=== PATIENT | male | born 1945 | race Caucasian/White ===

== ENCOUNTER 2019-03-20 07:25 | Emergency (ER) | payer MEDICARE, OTHER ==
[~2019-03-20] VITALS: Ht 175.3 cm; Wt 79.4 kg
[2019-03-20 07:35] LABS: URINE BILIRUBIN NEGATIVE (Negative); URINE BLOOD 2+ (Negative); URINE CLARITY CLEAR; URINE COLOR YELLOW; URINE GLUCOSE-RANDOM NEGATIVE (Negative); URINE KETONES NEGATIVE (Negative); URINE LEUKOCYTES-REFLEX NEGATIVE (Negative); URINE NITRITE-REFLEX NEGATIVE (Negative); URINE PROTEIN NEGATIVE (Negative); URINE SPECIFIC GRAVITY >= 1.030 (1.005-1.030); URINE UROBILINOGEN 0.2 E.U./dl (0.2-1.0)
[2019-03-20] MEDS ORDERED: LIPITOR20 MG PO (07:36)
[2019-03-20 07:44] LABS: SQUAMOUS 0-3 Few /LPF (0-3)
[2019-03-20 07:45] LABS: ABSOLUTE BASOPHILS 0.1 thou/uL (0.0-0.2); ABSOLUTE EOSINOPHILS 0.1 thou/uL (0.0-0.7); ABSOLUTE LYMPHOCYTES 1.1 thou/uL (0.8-5.3); ABSOLUTE MONOCYTES 0.5 thou/uL (0.0-1.2); ABSOLUTE NEUTROPHILS 7.1 thou/uL (1.6-8.1); EOSINOPHILS 0.9 %; HEMATOCRIT 50.9 % (42.0-52.0); LYMPHOCYTES 12.8 %; MCH 30.8 pg (26.0-34.0); MCHC 33.4 g/dL (28.0-37.0); MCV 92.2 fL (80.0-100.0); MONOCYTES 5.3 %; MPV 8.8 fl. (7.2-11.1); NUCLEATED RBCS 0 /100WBC; PLATELET COUNT* 214 thou/uL (150-400); RBC 5.52 mil/uL (4.50-6.00); RDW-CV 14.3 % (10.5-14.5); WBC 8.8 thou/uL (4.0-11.0)
[2019-03-20 07:45] LABS: BACTERIA-REFLEX 1-9 Few /HPF (None Seen); CRYSTALS None Seen /LPF (None Seen); HYALINE CASTS 0-3 Few /LPF (None Seen); MUCUS 4-6 Moderate strn/LPF (None Seen); URINE RBC 3-10 Few /HPF (0-2); URINE WBC-REFLEX 0-5 Rare /HPF (0-5)
[2019-03-20 07:55] LABS: ANION GAP 9 mmol/L (7-16); BUN 13 mg/dL (7-18); CALCIUM 8.8 mg/dL (8.5-10.1); CHLORIDE 104 mmol/L (98-107); CO2 31 mmol/L (21-32); CREATININE 1.3 mg/dL (0.6-1.3); GLUCOSE 139 mg/dL (70-99); POTASSIUM 3.4 mmol/L (3.5-5.1); SODIUM 144 mmol/L (136-145)
[2019-03-20 08:04] LABS: ALBUMIN 3.8 g/dL (3.4-5.0); ALKALINE PHOSPHATASE 99 U/L (46-116); LIPASE 294 U/L (73-393); SGOT 25 U/L (15-37); SGPT 35 U/L (30-65); TOTAL BILIRUBIN 0.8 mg/dL (<0.1-1.0); TROPONIN-I LEVEL <0.06 ng/mL (<0.06)
[2019-03-20] MEDS ORDERED: PROTONIX40 M1 PO (09:38)
[2019-03-20] MEDS ORDERED: ZOFRAN ODT4 MG SUBLING (09:38)
[2019-03-20] MEDS ORDERED: ULTRAM 50MG TAB50 MG PO (09:38)
[2019-03-20 09:54] VITALS: BP 145/64
--- NOTE | 2019-03-20 14:29 | EKG ---
[place] [address] ELECTROCARDIOGRAM REPORT Name: SUSANA SCHWARTZ Room: [facility]#: [id number] Admission: 03/20/19 Attend Phys: Discharge: 03/20/19 Date of : 43 Report #: [id number] THIS REPORT FOR: //name// [facility] ED Test Date: 2019-03-20 Test Time: 07:40:20 Pat Name: SUSANA SCHWARTZ Department: Room: Gender: Supervisor Machine Workers: Pete SUGGS : 1945 Requested By: Jared Brandon Order Number: [id number] MD: Josesito Naidu Measurements Intervals [place] Rate: 48 P: 39 NM: 174 QRS: -11 QRSD: 107 T: 24 QT: 477 QTc: 427 Interpretive Statements Sinus bradycardia Baseline wander in lead(s) V2 No previous ECG available for comparison Electronically Signed On 03-20-2019 14:29:38 CDT by Josesito Naidu [email or web address] <ELECTRONICALLY SIGNED> By: Josesito Naidu MD, [facility] 03/20/19 1429 0740 Josesito Naidu MD, [facility] /EPI
== END 2019-03-20 09:54 | disposition home or self-care (01) ==
LOC: M.ERS 07:25
PROVIDERS: Family Medicine
DX: R10.30 Lower abdominal pain, unspecified (principal); R11.2 Nausea with vomiting, unspecified

== ENCOUNTER 2019-05-24 17:21 | Emergency (ER) | payer OTHER ==
[~2019-05-24] VITALS: Ht 175.3 cm; Wt 74.8 kg
[~2019-05-24 17:21] MED LIST: LIPITOR20 MG PO; PROTONIX40 M1 PO; ULTRAM 50MG TAB50 MG PO; ZOFRAN ODT4 MG SUBLING
[2019-05-24 17:56] LABS: HEMATOCRIT 51.2 % (42.0-52.0); MCH 30.5 pg (26.0-34.0); MCHC 33.2 g/dL (28.0-37.0); MCV 91.9 fL (80.0-100.0); MPV 9.2 fl. (7.2-11.1); NUCLEATED RBCS 0 /100WBC; PLATELET COUNT* 232 thou/uL (150-400); RBC 5.57 mil/uL (4.50-6.00); RDW-CV 13.7 % (10.5-14.5); WBC 13.5 thou/uL (4.0-11.0)
[2019-05-24 17:57] LABS: URINE BILIRUBIN NEGATIVE (Negative); URINE BLOOD 3+ (Negative); URINE CLARITY CLEAR; URINE COLOR YELLOW; URINE GLUCOSE-RANDOM NEGATIVE (Negative); URINE KETONES 1+ (Negative); URINE LEUKOCYTES-REFLEX NEGATIVE (Negative); URINE NITRITE-REFLEX NEGATIVE (Negative); URINE PROTEIN 2+ (Negative); URINE SPECIFIC GRAVITY >= 1.030 (1.005-1.030); URINE UROBILINOGEN 0.2 E.U./dl (0.2-1.0)
[2019-05-24 18:04] LABS: HYALINE CASTS 0-3 Few /LPF (None Seen); MUCUS >6 Heavy strn/LPF (None Seen); URINE RBC >20 Many /HPF (0-2)
[2019-05-24 18:05] LABS: ANION GAP 13 mmol/L (7-16); BACTERIA-REFLEX 1-9 Few /HPF (None Seen); BUN 17 mg/dL (7-18); CALCIUM 9.5 mg/dL (8.5-10.1); CHLORIDE 104 mmol/L (98-107); CO2 26 mmol/L (21-32); CREATININE 1.3 mg/dL (0.6-1.3); CRYSTALS None Seen /LPF (None Seen); GLUCOSE 153 mg/dL (70-99); POTASSIUM 3.7 mmol/L (3.5-5.1); SODIUM 143 mmol/L (136-145); URINE WBC-REFLEX 0-5 Rare /HPF (0-5)
[2019-05-24 18:06] LABS: SQUAMOUS 0-3 Few /LPF (0-3)
[2019-05-24 18:14] LABS: ALBUMIN 4.1 g/dL (3.4-5.0); ALKALINE PHOSPHATASE 107 U/L (46-116); SGOT 17 U/L (15-37); SGPT 24 U/L (30-65); TOTAL PROTEIN 7.7 g/dL (6.4-8.2); TROPONIN-I LEVEL <0.06 ng/mL (<0.06)
[2019-05-24 18:23] LABS: ABSOLUTE LYMPHOCYTES 1.2 thou/uL (0.8-5.3); ABSOLUTE MONOCYTES 0.5 thou/uL (0.0-1.2); ABSOLUTE NEUTROPHILS 11.7 thou/uL (1.6-8.1); PLATELET ESTIMATE ADEQUATE
[2019-05-24] MEDS ORDERED: IBUPROFEN 800800 M1 PO (20:26)
[2019-05-24] MEDS ORDERED: NORCO 5-325 TA1 EAC1 PO (20:26)
[2019-05-24] MEDS ORDERED: FLOMAX0.4 MG PO (20:26)
[2019-05-24] MEDS ORDERED: ZOFRAN ODT4 MG DISSOLVE (20:26)
[2019-05-24 21:13] VITALS: BP 144/75
--- NOTE | 2019-05-25 11:10 | EKG ---
[place] [address] ELECTROCARDIOGRAM REPORT Name: SUSANA SCHWARTZ Room: [facility]#: [id number] Admission: 05/24/19 Attend Phys: Discharge: 05/24/19 Date of : 43 Report #: [id number] THIS REPORT FOR: //name// [facility] ED Test Date: 2019-05-24 Test Time: 18:06:27 Pat Name: SUSANA LANA Department: Room: Gender: Technical Sales Support Specialist: RADHA : 1945 Requested By: Wendy King Order Number: [id number] MD: Patrick Gan Measurements Intervals [place] Rate: 64 P: 45 ND: 179 QRS: -6 QRSD: 106 T: 31 QT: 452 QTc: 467 Interpretive Statements Sinus rhythm Compared to ECG 03/20/2019 07:40:20 Sinus bradycardia no longer present Electronically Signed On 05-25-2019 11:10:15 CDT by Patrick Gan [email or web address] <ELECTRONICALLY SIGNED> By: Patrick Gan MD, [facility] 05/25/19 1110 05 05 Patrick Gan MD, [facility] /EPI
== END 2019-05-24 21:15 | disposition home or self-care (01) ==
LOC: M.ERS 17:21
PROVIDERS: Personal Emergency Response Attendant
DX: N20.0 Calculus of kidney (principal); R11.2 Nausea with vomiting, unspecified